=== PATIENT | female | born 1970 | race Two or more races ===

== ENCOUNTER 2022-03-22 11:49 | Emergency (ER) | payer MEDICAID ==
[~2022-03-22] VITALS: Ht 162.6 cm; Wt 67.2 kg
[~2022-03-22 11:49] MED LIST: CLON0.5T54
[2022-03-22] MEDS ORDERED: CEPH-510 PO (16:54)
[2022-03-22] MEDS ORDERED: ERY05OO OP (16:59)
[2022-03-22 18:00] VITALS: BP 130/62
== END 2022-03-22 17:14 | disposition home or self-care (01) ==
LOC: ER 11:49
DX: S00.81XA Abrasion of other part of head, initial encounter (principal); L03.90 Cellulitis, unspecified; Z79.2 Long term (current) use of antibiotics; Z79.899 Other long term (current) drug therapy; X58.XXXA Exposure to other specified factors, initial encounter; Y93.89 Activity, other specified; Y92.89 Other specified places as the place of occurrence of the external cause; Y99.8 Other external cause status